=== PATIENT | male | born 1965 | race Caucasian/White ===

== ENCOUNTER 2019-09-17 21:01 | Emergency (ER) | payer BC, SELFPAY ==
[2019-09-17 21:02] VITALS: BP 121/79; PULSE 95; RESP 15; TEMP 36.6; O2SAT 97; BMI 23.5
--- NOTE | 2019-09-17 21:53 | CT_ITS ---
STUDY: CT ABDOMEN AND PELVIS WITHOUT CONTRAST REASON FOR EXAM: Male, 54 years old. LEFT FLANK PAIN, URINARY FREQUENCY, HEMATURIA RADIATION DOSAGE (If Supplied By Facility): CTDIvol = ( 6.81 ) mGy, DLP = ( 323.25 ) mGycm TECHNIQUE: Transaxial images were obtained from the dome of the diaphragm to the symphysis pubis without oral contrast, and without intravenous contrast. Sagittal and coronal images were reconstructed. Individualized dose optimization techniques were used for this CT. COMPARISON: None. FINDINGS: There is minor atelectasis within the dependent portion of the left lung.. The visualized portions of the heart are within normal limits. Normal liver. Contracted thick-walled gallbladder without calcified stones likely physiologic.. Normal spleen. Normal pancreas. Normal bilateral adrenal glands. Normal right kidney. There is moderate left hydroureteronephrosis secondary to a calculus in the distal ureter proximal to the ureterovesical junction measuring approximately 3.4 mm in size Normal visualized stomach. Diffuse ileus pattern noted with fecal retention in the colon.. Minor diverticular disease of the distal descending and sigmoid colon without evidence for acute diverticulitis The appendix is visualized and appears normal. Mild atherosclerotic changes of the aorta without evidence for aneurysm.. Normal inferior vena cava. Normal retroperitoneum. Normal urinary bladder. Small fat-containing periumbilical hernia. Lumbar spine demonstrates mild spondylosis CT/Abdomen/Pelvis without Cont IMPRESSION: Moderate left hydroureteronephrosis secondary to distal ureteral calculus measuring approximately 3 to 4 mm in size. Electronically Signed: Marcos Medrano MD at 22:22 EDT , Service support ,
--- NOTE | 2019-09-17 21:53 | ED.DCSUM_ITS ---
History of Present Illness Chief Complaint: Flank Pain Informant: Patient Narrative: 4-year-old male presents with left flank pain and hematuria since . He states that the pain was worse on and he used a heating pad which dulled the pain. He had intermittent sharp pain since then. He spelt the pain moved down into his left hip. He still has hematuria. He does not have dysuria. Patient denies history of kidney stones. Past Medical History - Allergies and Home Meds Allergies/Adverse Reactions: Allergies No Known Allergies Allergy (Verified 09/17/19 21:07) Primary Care Physician: Saulo Jones,Out of [Primary Care Provider] - Prior records reviewed: Yes Smoking Status: Current every day smoker Alcohol: None Drugs: None Review of Systems General: Denies: Chills, Fever, Sweats Eyes: Denies: Visual changes - bilaterally, Diplopia ENT: Denies: Rhinorrhea, Sore throat Cardiovascular: Denies: Chest pain, Palpitations Respiratory: Denies: Dyspnea, Cough, Dyspnea on exertion Gastrointestinal: Reports: - - Left flank and left lower quadrant pain Genitourinary: Reports: Hematuria Musculoskeletal: Denies: Myalgias Skin: Denies: Rash Physical Exam Vital Signs/Narrative: Vital Signs Temp Pulse Resp BP Pulse Ox 09/17/19 21:02 97.9 F 95 15 121/79 H 97 Inital Vital Signs reviewed: Yes General: Well nourished, Well developed, No Acute Distress Head: Normocephalic, Atraumatic Eyes: Perrl ENT: Moist mucous membranes Cardiovascular: Regular rate, Regular rhythm Respiratory: No distress, CTA bilaterally Abdomen: Soft Back: CVA tenderness - CVA tenderness Extremities: Nontender Skin: Normal color Neurological: Alert, Oriented x3 Psychological: Normal affect Diagnostic/Tx/Re-eval Clinical Impression(s) from Imaging Studies Abdomen/Pelvis CT 09/17/19 21:53 IMPRESSION: Moderate left hydroureteronephrosis secondary to distal ureteral calculus measuring approximately 3 to 4 mm in size. Electronically Signed: Marcos Medrano MD at 22:22 EDT , Service support , Laboratory Data 09/17/19 09/17/19 09/17/19 21:22 21:30 21:30 WBC 8.8 RBC 4.69 Hgb 13.9 Hct 41.4 MCV 88.3 MCH 29.6 MCHC 33.6 RDW Std Deviation 44.1 H RDW Coeff of José Manuel 13.7 Plt Count 232 MPV 11.1 Immature Gran % (Auto) 0.300 Neut % (Auto) 60.6 Lymph % (Auto) 25.9 Kleberg % (Auto) 8.8 Eos % (Auto) 3.4 Baso % (Auto) 1.0 Absolute Neuts (auto) 5.3 Absolute Lymphs (auto) 2.27 Nucleated RBC % 0 Sodium 140 Potassium 3.7 Chloride 107 Carbon Dioxide 30.0 Anion Gap 3 L BUN 13 Creatinine 0.92 Estim Creat Clear Calc 93.67 Est GFR (MDRD) Af Amer 110 Est GFR (MDRD) Non-Af 91 BUN/Creatinine Ratio 14.2 Glucose 91 Calcium 8.7 Urine Color Brown Urine Clarity Turbid Urine pH 5.0 Ur Specific Phelps 1.025 Urine Protein 100 H Urine Glucose (UA) Normal Urine Ketones 5 H Urine Occult Blood 250 H Urine Nitrite Positive H Urine Bilirubin 1 H Urine Urobilinogen 1 H Ur Leukocyte Esterase 100 H Urine RBC > 100 SEEN Urine WBC 5-10 SEEN Ur Squamous Epith Cells 0 SEEN Urine Bacteria 3+ Urine Mucus 0 SEEN - Medical Decision Making She presents with hematuria and left flank pain for the last couple of days. He is not had fevers. He is not vomiting. His pain is actually improved a little bit. He states that it has moved downward. His urinalysis does show blood but he does not have an infection. Blood work is normal. CT abdomen pelvis shows a 3 to 4 mm distal ureteral stone which will likely pass on its own. He is given pain, nausea medication for home. He was given Flomax. Follow-up outpatient return for any new or worsening symptoms. ED Disposition - Plan for ED Patient: Disposition: Home or Assisted Living Diagnosis: Kidney stone on left side Diagnosis: (Ruled Out): Crohn disease Instructions: ED Renal Stone w Colic Prescriptions: Tamsulosin HCl [Flomax] 0.4 mg PO DAILY #14 cap Prescription Printed Hydrocodone/Acetaminophen [[facility] 5-325 Tablet] 1 ea PO Q6H PRN PRN #10 tab PRN Reason: Pain/Inflammation Prescription Printed Ondansetron [Zofran Odt] 4 mg PO Q8H PRN PRN #14 tab PRN Reason: Nausea/Vomiting Prescription Printed Referrals: [facility] Doctor,Out of [Primary Care Provider] -
[2019-09-17 21:57] LABS: Mucous, Urine 0 SEEN /hpf (<or=2+); Squamous Epithelial Cells - UA 0 SEEN /hpf (0-5)
[2019-09-17 21:59] LABS: Color, Urine Brown (Yellow); Glucose, Dipstick Normal (Normal); Ketone-Dipstick 5 mg/dl (Negative); Leukocyte Esterase-Dipstick 100 /ul (Negative); Nitrite-Dipstick Positive (Negative); Occult Blood-Urine 250 /ul (Negative); Protein-Dipstick 100 mg/dl (Negative); Specific Gravity, Urine 1.025 (1.002-1.030); Urine Clarity Turbid (Clear); Urine Urobilinogen 1 mg/dl (Normal)
[2019-09-17] MEDS: Ketorolac 30 MG/ML Syringe IV (21:59)
[2019-09-17] MEDS: 0.9% Normal Saline 1,000 ML 1000 ML IV (21:59)
[2019-09-17] MEDS: Ondansetron 4 MG/2 ML Vial IV (21:59)
[2019-09-17 22:01] LABS: Urine Bilirubin Dipstick 1 mg/dL (Negative)
[2019-09-17 22:01] LABS: Absolute Lymphocyte Count 2.27 X10^3/uL (0.83-4.51); Absolute Neutrophil Count 5.3 X10^3/uL (2.0-7.7); Basophil# 0.09 X10^3/uL; Eosinophils% 3.4 % (0-5); Hematocrit 41.4 % (40-54); Hemoglobin 13.9 g/dL (13.0-16.5); Lymphocyte # 2.27 X10^3/ul (4.0); Lymphocyte % 25.9 % (19-41); Mean Corp Hgb Conc 33.6 g/dL (32-36); Mean Corpuscular Hgb 29.6 pg (27.0-32.0); Mean Corpuscular Volume 88.3 fL (80-94); Mean Platelet Vol. 11.1 fl (6.2-12.0); Monocyte# 0.77 X10^3/uL; Monocyte% 8.8 % (0-10); NRBC Flagged by Analyzer 0 % (0-5); Neutrophil # 5.31 X10^3/uL (2.7-7.7); Neutrophil % 60.6 % (47-70); Platelet Count 232 K/mm3 (150-450); RBC Distribution Width CV 13.7 % (11.6-14.6); RBC Distribution Width SD 44.1 fl (35.1-43.9); Red Blood Count 4.69 M/mm3 (4.6-6.2); White Blood Count 8.8 K/mm3 (4.4-11.0)
[2019-09-17 22:09] LABS: Anion Gap 3 (5-15); BUN 13 mg/dL (7-18); BUN/Creat Ratio 14.2 RATIO (10-20); Calcium,Total 8.7 mg/dL (8.5-10.1); Chloride 107 mmol/L (98-107); Creatinine, Serum 0.92 mg/dL (0.70-1.30); EST Glomerular Filtration Rate 91 mL/min (>60); Est Glom Filt Rate - Afr Amer 110 mL/min (>60); Estimated Creatinine Clearance 93.67 ml/min; Glucose 91 mg/dL (74-106); Potassium 3.7 mmol/L (3.5-5.1); Sodium Level 140 mmol/L (136-145)
[2019-09-17 22:09] LABS: Red Blood Cells-Urine > 100 SEEN /hpf (0-5)
[2019-09-17 22:10] LABS: White Blood Cells 5-10 SEEN /hpf (0-5)
[2019-09-17 22:15] LABS: Bacteria 3+ /hpf (None Seen)
[2019-09-17 23:14] VITALS: BP 118/65; PULSE 78; RESP 18; O2SAT 98
== END 2019-09-17 23:15 | disposition home or self-care (01) ==
PROVIDERS: Emergency Provider Student in an Organized Health Care Education/Training Program; PCP Family Medicine
DX: N13.2 Hydronephrosis with renal and ureteral calculous obstruction (principal); F17.200 Nicotine dependence, unspecified, uncomplicated
CPT/HCPCS: 74176; 80048; 81001; 85025; 96361; 96374; 96375; 99283; J7030; A4216; J2405